=== PATIENT | male | born 1980 | race African-American/Black ===

== ENCOUNTER → 2020-01-28 | Outpatient (CLI) | payer OTHER ==
[2020-01-28 10:06] LABS: ABSOLUTE LYMPHOCYTES (AUTO) 1.2 10^3/uL (0.5-4.7); ABSOLUTE MONOCYTES (AUTO) 0.4 10^3/uL (0.1-1.4); ABSOLUTE NEUT (AUTO) 1.8 10^3/uL (1.7-8.2); BASOPHILS % (AUTO) 0.5 % (0-2); HEMATOCRIT 40.4 % (37.9-51.0); HEMOGLOBIN 13.3 g/dL (13.5-17.0); LYMPHOCYTES % (AUTO) 36.3 % (13-45); MEAN CORPUSCULAR HEMOGLOBIN 25.5 pg (27.0-33.4); MEAN CORPUSCULAR HGB CONC 32.8 g/dL (32.0-36.0); MEAN CORPUSCULAR VOLUME 78 fl (80-97); MONOCYTES % (AUTO) 10.4 % (3-13); PLATELET COUNT 182 10^3/uL (150-450); RED BLOOD COUNT 5.19 10^6/uL (4.35-5.55); RED CELL DISTRIBUTION WIDTH 13.7 % (11.5-14.0); SEGMENTED NEUTROPHILS % (AUTO) 51.8 % (42-78); TOTAL CELLS COUNTED % (AUTO) 100 %; WHITE BLOOD COUNT 3.4 10^3/uL (4.0-10.5)
[2020-01-28 10:22] LABS: ALBUMIN 3.8 g/dL (3.5-5.0); ALKALINE PHOSPHATASE 81 U/L (38-126); ASPARTATE AMINO TRANSFERASE 28 U/L (17-59); BILIRUBIN,TOTAL 0.5 mg/dL (0.2-1.3); BLOOD UREA NITROGEN 17 mg/dL (7-20); CALCIUM 9.1 mg/dL (8.4-10.2); CHOLESTEROL 121.17 mg/dL (0-200); GLUCOSE 199 mg/dL (75-110); POTASSIUM 4.7 mmol/L (3.6-5.0); TOTAL PROTEIN 6.9 g/dL (6.3-8.2); TRIGLYCERIDES 27 mg/dL (<150)
[2020-01-28 10:27] LABS: CARBON DIOXIDE 33 mmol/L (22-30); CHLORIDE 100 mmol/L (98-107)
[2020-01-28 10:33] LABS: DIRECT LDL 48 mg/dL (<100)
[2020-01-28 10:55] LABS: ANION GAP 4 (5-19)
[2020-01-29 11:37] LABS: CREATININE URINE 158.7 mg/dL (Not Estab.); MICROALBUMIN URINE 11.8 ug/mL (Not Estab.)
== END ==
LOC: CCC 09:02
PROVIDERS: ATTEND Family Medicine
DX: E11.8 Type 2 diabetes mellitus with unspecified complications (principal)
CPT/HCPCS: 36415; 80053; 80061; 82043; 82570; 83036; 84443; 84550; 85025